=== PATIENT | female | born 1945 | race Caucasian/White ===

== ENCOUNTER → 2016-10-06 | Day surgery (SDC) | payer MEDICARE, OTHER ==
[~2016-10-06] MED LIST: ALEV220T14 PO; AMOX875T2 PO; BUPIVACAINE HCL PF 0.75% 30 ML VIAL ONE; DEXI30CA2 PO; ERYT400T4 PO; LIDOCAINE HCL 1% PF 30 ML VIAL INFIL ONE; PROPOFOL 200 MG/20 ML AMP IV ONE; SODIUM CHLORIDE 0.9% 10 ML VIAL ONE; TRIAMCINOLONE ACETONIDE 40 MG/ML VIAL NERV BLOCK ONE; TYLE325T PO; methylPREDNISolone ACETATE 80 MG/ML VIAL ONE
--- NOTE | 2016-10-06 12:20 | M6 ---
cc: FELY HAIRSTON M.D. Corrected Copy: 10/07/2016 DATE: 10/06/2016 DATE OF 1945 PROCEDURE Fluoroscopically guided L5-S1 translaminar epidural steroid injection PROCEDURE NOTE History and physical was completed and signed. Consent was signed. Procedure site was marked. Medications were listed and reconciled. Pain score was recorded. Allergies were noted. Time out was taken. Fluoroscopy time was recorded where applicable. Sedation was administered or directed by Dr. Hairston. The patient was given oxygen. The patient was monitored by a registered nurse. Total procedure time was greater than 15 minutes. IV was started, blood pressure cuff, pulse oximeter and EKG were applied. The patient was placed in the prone position on a Mina table, sedated with small amounts of propofol titrated to effect. Vital signs were monitored and remained stable throughout the procedure. The lumbar area was prepped with alcohol and 10% Betadine solution and draped with sterile drapes. Fluoroscopy was used to visualize the L5-S1 interlaminar space. The skin was infiltrated with 1% Xylocaine using a 27 gauge needle. Then a 3-1/2-inch 18-gauge Perera needle was advanced using fluoroscopic guidance and the nxuv-ia-iaxabxoedo technique into the epidural space at L5-S1 slightly to the right of the midline. There was negative aspiration for blood or any other type of fluid and the patient was given 10 mL of half percent Xylocaine, 80 mg of Depo-Medrol. Following the procedure, the patient was taken to the recovery room with stable vital signs neurologically intact. WMD TRICE Huggins/MARINO /8:51 AM /10:29 AM
== END | disposition home or self-care (01) ==
LOC: PHSDC 06:54
PROVIDERS: ATTEND Pain Medicine Interventional Pain Medicine
DX: M54.5 Low back pain (principal); Z88.2 Allergy status to sulfonamides
CPT/HCPCS: 62323; 99152; J1040; J3301

== ENCOUNTER → 2016-10-29 | Outpatient (CLI) | payer MEDICARE, OTHER ==
[~2016-10-29] MED LIST changes: -AMOX875T2 PO; -BUPIVACAINE HCL PF 0.75% 30 ML VIAL ONE; -LIDOCAINE HCL 1% PF 30 ML VIAL INFIL ONE; -PROPOFOL 200 MG/20 ML AMP IV ONE; -SODIUM CHLORIDE 0.9% 10 ML VIAL ONE; -TRIAMCINOLONE ACETONIDE 40 MG/ML VIAL NERV BLOCK ONE; -TYLE325T PO; -methylPREDNISolone ACETATE 80 MG/ML VIAL ONE
[2016-10-29 13:12] LABS: HEMATOCRIT 41.6 % (35.0-46.0); MEAN CELL VOLUME 84.8 FL (80.0-100.0); PLATELET COUNT 142 TH/MM3 (150-450); RED BLOOD COUNT 4.91 MIL/MM3 (4.00-5.30); RED CELL DISTRIBUTION WIDTH 15.9 % (11.6-17.2); REVIEW FLAG FINAL; WHITE BLOOD COUNT 4.5 TH/MM3 (4.0-11.0)
[2016-10-29 13:31] LABS: ANION GAP 4 MEQ/L (5-15); AST (GOT) 15 U/L (15-37); BICARBONATE 29.7 MEQ/L (21.0-32.0); BLOOD UREA NITROGEN 15 MG/DL (7-18); CHLORIDE 108 MEQ/L (98-107); GLOMERULAR FILTRATION RATE 59 ML/MIN (>89); GLUCOSE,FASTING 78 MG/DL (74-99); POTASSIUM 4.4 MEQ/L (3.5-5.1); SODIUM (NA) 142 MEQ/L (136-145)
[2016-10-29 13:41] LABS: ALKALINE PHOSPHATASE 55 U/L (45-117); ALT (GPT) 24 U/L (10-53); HDL CHOLESTEROL 106.2 MG/DL (40.0-60.0); LDL CHOLESTEROL 129 MG/DL (0-99); LDL CHOLESTEROL DIRECT 126 MG/DL (0-99); TOTAL BILIRUBIN ADULT 0.4 MG/DL (0.2-1.0)
[2016-10-29 15:59] LABS: HEMOGLOBIN A1a 0.9 %; HEMOGLOBIN A1b 0.9 %; HEMOGLOBIN Ao 83.8 %; HEMOGLOBIN F 1.1 %; HEMOGLOBIN LA1C 2.1 %
== END ==
LOC: PLAB 10:45
PROVIDERS: ATTEND Family Medicine
DX: R53.83 Other fatigue (principal); E78.2 Mixed hyperlipidemia; R73.01 Impaired fasting glucose
CPT/HCPCS: 36415; 80053; 80061; 83036; 83721; 84443; 85027